=== PATIENT | male | born 1950 | race African-American/Black ===

== ENCOUNTER 2016-07-07 06:18 | Day surgery (SDC) | payer BC ==
[2016-06-30 12:56] LABS: HEMATOCRIT 45.8 % (40.0-51.0); HEMOGLOBIN 14.6 g/dL (13.6-17.8)
[2016-06-30 13:08] LABS: BUN (BLOOD UREA NITROGEN) 16 MG/DL (6-23); CALCIUM, SERUM 9.6 MG/DL (8.5-10.4); CHLORIDE, SERUM 107 MMOL/L (96-112); CO2 (CARBON DIOXIDE) 28 MMOL/L (24-34); CREATININE 1.29 MG/DL (0.70-1.30); GFR AFRICAN AMERICAN 67 ML/MIN (>=60); GFR NON AFRICAN AMERICAN 58 ML/MIN (>=60); GLUCOSE, SERUM 96 MG/DL (60-99); POTASSIUM, SERUM 4.4 MMOL/L (3.5-5.3); SODIUM, SERUM 143 MMOL/L (135-148)
--- NOTE | ~2016-07-07 | OP ---
Record Of Operation [facility] [address] [place]. 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 POSTOPERATIVE DIAGNOSES: 1. Vallecular cyst. 2. Thyroglossal duct cyst. PROCEDURE PERFORMED: 1. Direct laryngoscopy, exam under anesthesia, diagnosis of vallecular cyst. 2. Katrin procedure. POWER GRADER OPERATOR: Marcos Cruz. ANESTHESIA: General. COMPLICATIONS: None. CONDITION: Stable to recovery. INDICATIONS: A 65-year-old male with a history of a thyroglossal duct cyst noted on CT scan. Additionally, there was a cystic area in the vallecula that cannot be visualized on physical exam due to hyperactive gag reflex. So this was to be assessed intraoperatively. PROCEDURE IN DETAIL: The patient was identified in preop holding, taken back to the operating room, and placed supine on the operating room table. General anesthesia was established. A time-out was called and the patient procedure were confirmed. Initially, direct laryngoscopy was performed. The table was turned with the right side facing outwards. He was prepped and draped in a standard fashion. For the procedure, an anterior commissure laryngoscope was used to examine the oropharynx, hypopharynx, and larynx. There was a small vallecular cyst, photodocumentation performed. There was no evidence of tumor. He had hypotrophic lingual tonsillar tissue that was symmetrical. This portion of the case was terminated. The patient was then turned back to Anesthesia, and prepped and draped in the standard fashion for a Katrin procedure. I injected the anterior neck in a preexisting skin crease with 3 mL of 1% lidocaine with 1:100,000 epinephrine. Using 2.5x loupe magnification and headlight illumination, the operation commenced. A 15 blade was used to make the skin incision. Bovie cautery was used to elevate subplatysmal and subcutaneous flaps up to the hyoid bone and inferiorly to the mid trachea. The sternohyoid and sternothyroid muscles were dissected off the cystic structure and transected at the insertion to the hyoid bone. Hyoid bone was skeletonized both right and left side and a rongeur was used to cut through the hyoid bone to release it from the tongue base. The soft tissue was dissected from a lateral to medial direction to where the thyroglossal Record Of Operation [address] [place]. [address] NAME: NINA JJ : 50 STATUS : [facility] PAT#: [id number] AGE: 65 ADM/REG DATE : 07/07/16 MR#: [id number] REPORT SERV DATE: 07/07/16 DICTATED BY: PAUL CARPENTER DATE: 07/07/16 REPORT STATUS : Draft TRANSCRIBED BY: SUNNY DATE: 07/07/16 duct was identified. A nlnlwj-bg-fydgl stitch was placed around the duct and the 15 blade was used to cut the remainder of the hyoid bone from the attachments to the tongue base. An additional obdctx-dm-djeta stitch was placed. The wound was irrigated. Bipolar cautery was used for hemostasis. A 10-Syriac round fully perforated drain was placed and secured with 3 0 Vicryl suture, and the wound was closed in layers using 3-0 Vicryl suture for platysma and subcutaneous tissues and Dermabond for the skin followed by Steri-Strips. The patient was awakened and taken to recovery in stable condition. PH/MODL Paul Carpenter M.D. / [id number] CC: Rafaela Barron III, M.D.
[~2016-07-07 06:18] MED LIST: ASAB PO; NORV5 PO; PRIN20 PO
== END 2016-07-07 12:54 | disposition home or self-care (01) ==
LOC: SDC 06:18
PROVIDERS: Specialist
PROC: 0WB60ZZ Excision of Neck, Open Approach (ICD-10-PCS; principal; 2016-07-07 07:15)
PROC: 0CJS8ZZ Inspection of Larynx, Via Natural or Artificial Opening Endoscopic (ICD-10-PCS; 2016-07-07 07:15)
DX: J38.7 Other diseases of larynx (principal); I10 Essential (primary) hypertension
CPT/HCPCS: 80048; 85014; 85018; 88305; 88307; 88311; 93005; J0690; J2250; J2405; J2710; J3010